=== PATIENT | female | born 1935 | race Caucasian/White ===

== ENCOUNTER 2018-11-26 12:56 | Day surgery (SDC) | payer MEDICARE ==
[~2018-11-26 12:56] MED LIST: Metoclopramide 10 MG/2 ML SDV IV PRN; Sodium Chloride 0.9% 1,000 ML IV SCH
[2018-11-26] MEDS ORDERED: Propofol 1,000 MG/100 ML SDV ONE (16:10)
--- NOTE | 2018-11-26 17:58 | OR ---
DATE OF OPERATION: 11/26/2018 PREOPERATIVE DIAGNOSIS: Abdominal pain. POSTOPERATIVE DIAGNOSIS: Abdominal pain. PROCEDURE: Colonoscopy. ANESTHESIA: MAC. ESTIMATED BLOOD LOSS: None. COMPLICATIONS: None. INDICATION FOR THE PROCEDURE: The patient is an 83-year-old female who for the past couple of months has had left-sided abdominal pain. Last colonoscopy was 5 to 6 years ago. Denies any change in bowel habits. Denies any blood in her stool. Does have chronic constipation. The patient is brought to the OR today for colonoscopy. DESCRIPTION OF PROCEDURE: Informed consent was obtained from the patient. The patient was taken to the operating room and placed on the table in the left lateral decubitus position. Monitored anesthesia care was administered. Digital rectal exam performed and was normal. Colonoscope was then advanced through the anus and directed toward the cecum. Sigmoid colon was tortuous, redundant, and floppy with many large and small diverticula. I was able to navigate through the sigmoid after repositioning the patient on her back. Cecum was eventually reached, identified by appendiceal orifice and ileocecal valve. The terminal ileum was intubated and also appeared to be normal. Colonoscope was then slowly withdrawn. No masses. No areas of ischemia or inflammation. 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 Otherwise, no polyps, no cancer. Diverticulosis, severe in the sigmoid, as previously stated. Air was suctioned out on the way out as well. Rectum was also otherwise unremarkable. FINDINGS: Sigmoid diverticulosis, otherwise normal colon. RECOMMENDATIONS: Recommend continued water and high-fiber diet for her diverticula. Otherwise, would not recommend any further colonoscopies due to age and difficulty with this one. HANY/MIRIAN /[id number]
[2018-11-26 18:47] VITALS: BP 143/88
== END 2018-11-26 18:05 | disposition home or self-care (01) ==
LOC: LB.SDS 12:56
PROVIDERS: ATTEND Surgery
DX: K57.30 Diverticulosis of large intestine without perforation or abscess without bleeding (principal); K59.09 Other constipation; Q43.8 Other specified congenital malformations of intestine; Q27.33 Arteriovenous malformation of digestive system vessel
CPT/HCPCS: G0121; J2704; J7030

== ENCOUNTER 2018-12-23 16:22 | Emergency (ER) | payer MEDICARE ==
[2018-12-23] MEDS ORDERED: Morphine 2 MG/ML Syringe ONE (17:33)
[2018-12-23] MEDS ORDERED: HYDROmorphone 2 MG/ML SDV IVPUSH ONE (17:39)
[2018-12-23] MEDS ORDERED: Morphine 2 MG/ML Syringe IVPUSH ONE (17:40)
[2018-12-23] MEDS ORDERED: Ondansetron 4 MG/2 ML SDV IVPUSH ONE (17:41)
[2018-12-23] MEDS ORDERED: HYDROmorphone 2 MG/ML SDV ONE (17:44)
[2018-12-23] MEDS ORDERED: Ondansetron 4 MG/2 ML SDV ONE (17:51)
== END 2018-12-23 18:00 ==
LOC: LB.ED 16:22
DX: S32.000A Wedge compression fracture of unspecified lumbar vertebra, initial encounter for closed fracture (principal); S32.10XA Unspecified fracture of sacrum, initial encounter for closed fracture; Z04.3 Encounter for examination and observation following other accident; Z88.0 Allergy status to penicillin; Z88.5 Allergy status to narcotic agent; Z79.82 Long term (current) use of aspirin; Z79.899 Other long term (current) drug therapy; W18.39XA Other fall on same level, initial encounter
CPT/HCPCS: 36415; 72131; 72192; 80048; 85025; 85610; 96374; 96375; 99284; A0425; A0429; J1170; J2270; J2405

== ENCOUNTER 2018-12-28 05:01 | Emergency (ER) | payer MEDICARE ==
[2018-12-28] MEDS ORDERED: Morphine 2 MG/ML Syringe IVPUSH ONE (05:11)
[2018-12-28] MEDS ORDERED: HYDROmorphone 2 MG/ML Syringe IVPUSH ONE (05:11)
[2018-12-28] MEDS ORDERED: Sodium Chloride 0.9% 1,000 ML IV SCH (06:15)
--- NOTE | 2018-12-28 07:18 | EDM.PDOC ---
ED HPI GENERAL MEDICAL PROBLEM - General Chief Complaint: General Stated Complaint: LEFT HIP PAIN Time Seen by Provider: 12/28/18 05:15 Source of Information: Reports: Patient, Family History Limitations: Reports: No Limitations - History of Present Illness INITIAL COMMENTS - FREE TEXT/NARRATIVE: Pt is 83 year old female, who recently was discharge from [facility] s/p Multiple thoracic ,lumbar and sacral fracture. Pt was placed on back brace and discharged on 12/25/18. Apparently today morning around 4:00 am, patient got out of her bed to use the bathroom fell and landed on her left hip. Since then she has not been able to walk, and has been c/o pain in her left groin with any movement. . No head injury, loss of consciousness. Does c/o pressure in the bladder. No fever or chills. No other complaints. Onset: Today Onset Date: 12/28/18 Onset Time: 04:00 Duration: Getting Worse Location: Reports: Pelvis Quality: Reports: Ache Severity: Severe Improves with: Reports: Rest Worsens with: Reports: Movement Associated Symptoms: Denies: Confusion, Chest Pain, Cough, Diaphoresis, Fever/ Chills, Nausea/Vomiting, Rash, Seizure, Shortness of Breath, Syncope, Weakness Left Hip Pain Score (Numeric/FACES): 9 - Related Data Allergies Allergy/AdvReac Type Severity Reaction Status Date / Time Penicillins Allergy Rash Verified 12/28/18 05:37 Sulfa (Sulfonamide Allergy Hives Verified 12/28/18 05:37 Antibiotics) codeine AdvReac Nausea Verified 12/28/18 05:37 morphine AdvReac Nausea Verified 12/28/18 05:37 Home Meds: Home Meds Atenolol 25 mg PO QAM 07/25/13 [History] Furosemide [Lasix] 20 mg PO QAM 07/25/13 [History] NIFEdipine [Nifedipine ER] 60 mg PO QAM 07/25/13 [History] Warfarin [Coumadin] 5 mg PO QPM 07/25/13 [History] Acetaminophen [Tylenol Extra Strength] 325 mg PO QID 10/10/16 [History] Ascorbic Acid [Vitamin C] 500 mg PO DAILY 10/10/16 [History] Aspirin 81 mg PO DAILY 10/10/16 [History] Calcium Carbonate/Vitamin D3 [Calcium 600 + Vit D Tablet] 1 tab PO DAILY [History] Cyanocobalamin (Vitamin B12) [Vitamin B12] 100 mcg PO DAILY 10/10/16 [History] Gluc 2KCl/Chondr/Hanna Hy/Hy Ac [Glucosamine & Chondroitin Cap] 1 tab PO DAILY [History] Multivitamin [Multivitamins] 1 tab PO DAILY 10/10/16 [History] Simvastatin [Zocor] 20 mg PO BEDTIME 10/10/16 [History] Vitamin E 400 units PO DAILY 10/10/16 [History] Hydrochlorothiazide/Lisinopril [Lisinopril-HCTZ 20-25 MG] 1 tab PO DAILY [History] B Complex & C No.20/Folic Acid [Mynephrocaps Softgel] 1 mg PO DAILY 12/28/18 [ History] Cholecalciferol (Vitamin D3) [Vitajoy Daily D] 1,000 unit PO DAILY 12/28/18 [ History] Cyclobenzaprine [Flexeril] 5 mg PO TID PRN 12/28/18 [History] Doxycycline Hyclate [Vibramycin] 100 mg PO BID 12/28/18 [History] Gabapentin [Neurontin] 100 mg PO TID 12/28/18 [History] Polyethylene Glycol 3350 [MiraLAX] 17 gm PO DAILY 12/28/18 [History] Past Medical History HEENT History: Reports: Impaired Vision Cardiovascular History: Reports: High Cholesterol, Hypertension Gastrointestinal History: Reports: Chronic Constipation, Other (See Below) Other Gastrointestinal History: occassional diarrhea 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 Psychiatric History: Reports: Anxiety - Past Surgical History Female Surgical History: Reports: Hysterectomy Musculoskeletal Surgical History: Reports: Shoulder Surgery Social & Family History - Family History Family Medical History: Noncontributory - Tobacco Use Smoking Status *Q: Unknown Ever Smoked Second Hand Smoke Exposure: No - Caffeine Use Caffeine Use: Reports: Coffee Other Caffeine Use: 2/day - Recreational Drug Use Recreational Drug Use: No ED ROS GENERAL - Review of Systems Review Of Systems: See Below Constitutional: Denies: Fever, Chills HEENT: Denies: Rhinitis, Throat Pain Respiratory: Denies: Shortness of Breath, Pleuritic Chest Pain, Cough, Sputum Cardiovascular: Denies: Chest Pain, Lightheadedness GI/Abdominal: Denies: Abdominal Pain, Nausea, Vomiting : Denies: Dysuria, Frequency Musculoskeletal: Reports: Back Pain, Joint Pain. Denies: Joint Swelling Skin: Denies: Bruising, Pruritis, Rash, Wound ED EXAM, GENERAL - Physical Exam Exam: See Below Exam Limited By: No Limitations General Appearance: Alert, WD/WN, Moderate Distress (from pain) Eye Exam: Bilateral Eye: EOMI, PERRL Ears: Normal External Exam, Normal Canal, Hearing Grossly Normal, Normal TMs Ear Exam: Bilateral Ear: Auricle Normal, Canal Normal, TM normal Nose: Normal Inspection, Normal Mucosa, No Blood Throat/Mouth: Normal Inspection, Normal Lips, Normal Teeth, Normal Gums, Normal Oropharynx, Normal Voice, No Airway Compromise Head: Atraumatic, Normocephalic Neck: Normal Inspection, Supple, Non-Tender, Full Range of Motion Respiratory/Chest: No Respiratory Distress, Lungs Clear, Normal Breath Sounds, No Accessory Muscle Use, Chest Non-Tender Cardiovascular: Normal Peripheral Pulses, Regular Rate, Rhythm, No Edema, No Gallop, No JVD, No Murmur, No Rub Back Exam: Other (Pt has back brace on , due to recent multiple thoraco lumbar vertebral fractures.) Extremities: Normal Inspection, Normal Range of Motion, Other (Pelvis: there is no swelling patient left hemipelvis appears shortened. She iver very tender on the groin to palpation. She does had minimal flexion of the hip. Tenderness in the left groin on lateral pressure) Neurological: Alert, Oriented, CN II-XII Intact, Normal Cognition Course - Vital Signs Text/Narrative:: On clinical exam patient does have left groin pain. She does have painful left hip ROM, it does not appear like hip fracture. As patient has had ostepenia with multiple vertebral fracture recently, I di order CT thoracolumbar spine and CT pelvis. Also CBC was ordered. Her vitals have been stable. She rate her pain at 8/10 . She did receive morphine 4mg IV, which only took edge of the pain. she did receive Dilaudid 1mg before getting her to CT scan. Pt's Ct does show fracture of the left superior and inferior pubic rami. With previous multiple thoracolumbar fracture and left S1 fracture. Pt's pain is down to 2/10 presently. Did have trouble with radiologist reading the CT due to high volume. Did have final CT read at 6:48 Am, which acute left superior and inferior pubic rami, also the bladder is partially collapsed and there is free retroperitoneal fluid. Does appear like urinary bladder injury. Urinary catheter was placed and there was casey blood in the catheter. I did contact Abdulkadir Carver and was recommended to transfer patient to trauma facility. As patient was recently admitted to [facility], I did contact Dr. Smith, trauma surgeon natural resources extension educator and discuss patient with her. She did agree to accept patient. Pt's CBC shows hemoglobin of 11.4 with HCT of 33. Her BMP shows sodium down at 128 and creat of 1.5.Her INR is 2.1 Pt has been placed on NS at 75cc/hr also is kept NPO. She pain is down to 2/10 and appears comfortable. Duet to extend of injury and distance of the facility, I have made decision to have patient transferred by air. Pt will be transferred to [facility] Under Care of Dr. Smith. Further care per Dr. Smith. Last Recorded V/S: Last Vital Signs Temp 97.7 F 12/28/18 05:05 Pulse 63 12/28/18 06:04 Resp 16 12/28/18 06:04 BP 97/47 L 12/28/18 06:04 Pulse Ox 93 L 12/28/18 05:50 - Orders/Labs/Meds Orders: Active Orders 24 hr Category Date Time Status Insert Shah Catheter [Insert Urinary Catheter] [OM.PC] Care 12/28/18 06:15 Ordered Q24H Urinary Catheter Assessment [RC] ASDIRECTED Care 12/28/18 06:15 Active Abdomen Pelvis wo Cont [CT] Stat Exams 12/28/18 05:09 Taken Lumbar Spine wo Cont [CT] Stat Exams 12/28/18 05:09 Taken Thoracic Spine wo Cont [CT] Stat Exams 12/28/18 05:09 Taken BASIC METABOLIC PANEL,BMP [CHEM] Stat Lab 12/28/18 07:10 Ordered INR,PT,PROTHROMBIN TIME [COAG] Stat Lab 12/28/18 07:10 Ordered Sodium Chloride 0.9% [Normal Saline] 1,000 ml Med 12/28/18 06:15 Active IV ASDIRECTED Medication Orders Sodium Chloride (Normal Saline) 1,000 mls @ 75 mls/hr IV ASDIRECTED BRADEN Last Admin: 12/28/18 06:25 Dose: 75 mls/hr Labs: Laboratory Tests 12/28/18 Range/Units 05:20 WBC 6.2 (4.0-11.0) K/uL RBC 3.79 L (3.80-5.80) M/uL Hgb 11.4 L (11.5-16.5) g/dL Hct 33.2 L (37.0-47.0) % MCV 88 (76-96) fL MCH 30.1 (27.0-32.0) pg MCHC 34.3 (31.0-35.0) g/dL RDW 13.4 (11.0-16.0) % Plt Count 268 (150-500) K/uL MPV 8.5 (6.0-10.0) fL Neut % (Auto) 69.1 (45.0-70.0) % Lymph % (Auto) 15.7 L (20.0-40.0) % [place] % (Auto) 8.3 (3.0-10.0) % Eos % (Auto) 6.4 H (1.0-5.0) % Baso % (Auto) 0.5 (0.0-0.5) % Neut # (Auto) 4.30 (2.00-7.50) K/uL Lymph # (Auto) 0.98 L (1.50-4.00) K/uL [place] # (Auto) 0.52 (0.20-0.80) K/uL Eos # (Auto) 0.40 (0.04-0.40) K/uL Baso # (Auto) 0.03 (0.02-0.10) K/uL Meds: Medications Generic Name Dose Route Start Last Admin Trade Name Freq PRN Reason Stop Dose Admin Sodium Chloride 1,000 mls @ 75 mls/hr 12/28/18 06:15 12/28/18 06:25 Normal Saline IV 75 mls/hr ASDIRECTED BRADEN Administration Discontinued Medications Generic Name Dose Route Start Last Admin Trade Name Freq PRN Reason Stop Dose Admin Hydromorphone HCl 1 mg 12/28/18 05:11 12/28/18 05:45 Dilaudid IVPUSH 12/28/18 05:12 1 mg ONETIME ONE Administration Morphine Sulfate 4 mg 12/28/18 05:11 12/28/18 05:22 Morphine IVPUSH 12/28/18 05:12 4 mg ONETIME ONE Administration Departure - Departure Time of Disposition: 08:30 Disposition: DC/Tfer to Acute Hospital 02 Condition: Fair Clinical Impression: Pelvic fracture, Bladder and urethra injury - Discharge Information *PRESCRIPTION DRUG MONITORING PROGRAM REVIEWED*: Not Applicable *COPY OF PRESCRIPTION DRUG MONITORING REPORT IN PATIENT JACQUELINE: Not Applicable Referrals: PCP,None [Primary Care Provider] - - Problem List & Annotations (1) Bladder and urethra injury SNOMED Code(s): 370767465 Code(s): S37.20XA - UNSPECIFIED INJURY OF BLADDER, INITIAL ENCOUNTER; S37.30XA - UNSPECIFIED INJURY OF URETHRA, INITIAL ENCOUNTER Status: Acute Current Visit: Yes (2) Pelvic fracture SNOMED Code(s): 35838494 Code(s): S32.9XXA - FRACTURE OF UNSP PARTS OF LUMBOSACRAL SPINE AND PELVIS, INIT Status: Acute Current Visit: Yes - Problem List Review Problem List Initiated/Reviewed/Updated: Yes - My Orders Last 24 Hours: My Active Orders 12/28/18 05:09 Abdomen Pelvis wo Cont [CT] Stat Lumbar Spine wo Cont [CT] Stat Thoracic Spine wo Cont [CT] Stat 12/28/18 06:15 Insert Shah Catheter [Insert Urinary Catheter] [OM.PC] Q24H Urinary Catheter Assessment [RC] ASDIRECTED Sodium Chloride 0.9% [Normal Saline] 1,000 ml IV ASDIRECTED 12/28/18 07:10 BASIC METABOLIC PANEL,BMP [CHEM] Stat INR,PT,PROTHROMBIN TIME [COAG] Stat - Assessment/Plan Last 24 Hours: My Active Orders 12/28/18 05:09 Abdomen Pelvis wo Cont [CT] Stat Lumbar Spine wo Cont [CT] Stat Thoracic Spine wo Cont [CT] Stat 12/28/18 06:15 Insert Shah Catheter [Insert Urinary Catheter] [OM.PC] Q24H Urinary Catheter Assessment [RC] ASDIRECTED Sodium Chloride 0.9% [Normal Saline] 1,000 ml IV ASDIRECTED 12/28/18 07:10 BASIC METABOLIC PANEL,BMP [CHEM] Stat INR,PT,PROTHROMBIN TIME [COAG] Stat Assessment:: On clinical exam patient does have left groin pain. She does have painful left hip ROM, it does not appear like hip fracture. As patient has had ostepenia with multiple vertebral fracture recently, I di order CT thoracolumbar spine and CT pelvis. Also CBC was ordered. Her vitals have been stable. She rate her pain at 8/10 . She did receive morphine 4mg IV, which only took edge of the pain. she did receive Dilaudid 1mg before getting her to CT scan. Pt's Ct does show fracture of the left superior and inferior pubic rami. With previous multiple thoracolumbar fracture and left S1 fracture. Pt's pain is down to 2/10 presently. Did have trouble with radiologist reading the CT due to high volume. Did have final CT read at 6:48 Am, which acute left superior and inferior pubic rami, also the bladder is partially collapsed and there is free retroperitoneal fluid. Does appear like urinary bladder injury. Urinary catheter was placed and there was casey blood in the catheter. I did contact Abdulkadir Carver and was recommended to transfer patient to trauma facility. As patient was recently admitted to [facility], I did contact Dr. Smith, trauma surgeon natural resources extension educator and discuss patient with her. She did agree to accept patient. Pt's CBC shows hemoglobin of 11.4 with HCT of 33. Her BMP shows sodium down at 128 and creat of 1.5.Her INR is 2.1 Pt has been placed on NS at 75cc/hr also is kept NPO. She pain is down to 2/10 and appears comfortable. Duet to extend of injury and distance of the facility, I have made decision to have patient transferred by air. Pt will be transferred to [facility] Under Care of Dr. Smith. Further care per Dr. Smith.
[2018-12-28 08:00] VITALS: BP 110/69; PULSE 86
--- NOTE | 2018-12-28 09:11 | CT ---
DATE OF SERVICE: 12/28/18 CLINICAL DATA: Fall. THORACIC SPINE CT: Multislice axial acquisition was performed. Axial images and sagittal and coronal reformations are reviewed. Comparison is made to a prior lumbar spine CT dated 12/23/18. There is a partial compression fracture of the T6 vertebra with approximately 70 %-80% loss of height anteriorly. The age of this is indeterminate. The posterior cortex of T6 is slightly retropulsed producing slight narrowing of the spinal canal in the AP dimension. There are compression fractures involving the T9, T10 and T12 vertebral bodies. There is approximately 20%-30% loss of height anteriorly at the T7 level and approximately 30%-40% loss of height at the T11 level. There is approximately 70%-80% loss of height at the T12 level. These were present on the prior CT and are unchanged. No other compression fractures. There is degenerative disk disease throughout the thoracic spine. There is facet joint hypertrophy at multiple levels. No significant central or foraminal stenosis. There are atherosclerotic changes at the thoracic aorta. [id number] [facility]
--- NOTE | 2018-12-28 09:17 | CT ---
DATE OF SERVICE: 12/28/18 CLINICAL DATA: Fall. LUMBAR SPINE CT: Routine CT protocol. Axial images and sagittal and coronal reformations are reviewed. Comparison is made to a prior lumbar spine CT dated 12/23/18. There is diffuse osteopenia. There are partial compression fractures of the T12, L1, L2, L3, and L5 vertebral bodies. They appear unchanged from the prior exam. There are fractures through the transverse processes of L4 and L5 bilaterally. These were not present on the prior study. There is angular deformity of the sacrum at the S1-S2 level. This appears unchanged from the prior exam and is probably related to prior trauma. There are lucencies through the sacral ala bilaterally consistent with fractures. These are not clearly seen on the prior study. The remainder of the exam is unchanged from the previous. [id number] [facility]
--- NOTE | 2018-12-28 09:23 | CT ---
DATE OF SERVICE: 12/28/18 CLINICAL DATA: Fall. UNENHANCED ABDOMEN AND PELVIC CT: Multislice axial acquisition through the abdomen and pelvis without IV or oral contrast was performed. Comparison is made to a prior abdomen and pelvic CT dated 10/22/18. There are chronic atelectatic/fibrotic changes in both lung bases. There are coronary artery calcifications. The unenhanced liver appears normal. The patient is status post cholecystectomy. The spleen appears normal. The pancreas appears normal. The right and left adrenals appear normal. There is atrophy of both kidneys. No nephrocalcinosis or nephrolithiasis. No hydronephrosis or hydroureter. The bladder is partially fluid filled. There is diffuse bladder wall thickening. This is probably related to non distention. Cystitis should be considered. No free air. No dilated loops of bowel. No adenopathy. No aortic aneurysm. There are acute minimally displaced fractures of the superior and inferior pubic rami on the left. There is adjacent fluid and there is free fluid noted within the pelvis. This is probably hematoma. There is mild displacement of the bladder. Multiple other fractures noted in the lumbar spine and sacrum. See lumbar spine CT report. No other interval changes from the prior study. [id number] [facility]
== END 2018-12-28 08:35 ==
LOC: LB.ED 05:01
DX: S32.592A Other specified fracture of left pubis, initial encounter for closed fracture (principal); S32.049A Unspecified fracture of fourth lumbar vertebra, initial encounter for closed fracture; S32.059A Unspecified fracture of fifth lumbar vertebra, initial encounter for closed fracture; S37.20XA Unspecified injury of bladder, initial encounter; S37.30XA Unspecified injury of urethra, initial encounter; I10 Essential (primary) hypertension; Z88.0 Allergy status to penicillin; Z88.2 Allergy status to sulfonamides; Z88.5 Allergy status to narcotic agent; Z79.01 Long term (current) use of anticoagulants; Z79.82 Long term (current) use of aspirin; Z79.899 Other long term (current) drug therapy; Z90.710 Acquired absence of both cervix and uterus; W01.0XXA Fall on same level from slipping, tripping and stumbling without subsequent striking against object, initial encounter
CPT/HCPCS: 36415; 51702; 72128; 72131; 74176; 80048; 85025; 85610; 96361; 96374; 96375; 99285; A0425; A0429; J1170; J2270; J7030

== ENCOUNTER 2021-05-21 11:33 | Emergency (ER) | payer MEDICARE ==
[2021-05-21] MEDS: Sodium Chloride 0.9% 1,000 ML IV ONE (13:12)
[2021-05-21] MEDS: Bamlanivimab 700 MG, ETESEVIMAB 1,400 MG in Sodium Chloride 0.9% 100 ML IV SCH (15:05)
--- NOTE | 2021-05-21 15:49 | CT ---
DATE OF SERVICE: 05/21/2021 CLINICAL DATA: Abdominal pain Unenhanced abdomen and pelvic CT: Multi slice acquisition through the abdomen and pelvis without IV or oral contrast was performed. Comparison is made to a prior unenhanced abdomen and pelvic CT dated 28 December 2018. There are linear densities in both lung bases consistent with linear atelectasis or fibrosis. No pleural effusion. The heart size is normal. The unenhanced liver appears normal. No focal hepatic lesions. The patient is status post cholecystectomy. No biliary duct dilatation. The spleen appears normal. The pancreas is mildly atrophic, otherwise normal. The right and left adrenals appear normal. There is atrophy of both kidneys. No nephrocalcinosis or nephrolithiasis. No hydronephrosis or hydroureter. The bladder is partially fluid filled. It appears normal. The patient is status post hysterectomy. There is mild gastric wall thickening. This is probably related to nondistention. There is a duodenal diverticulum projecting from the descending portion of duodenum. No evidence of appendicitis. There are scattered air-fluid levels throughout the colon. There are few scattered air-fluid levels noted within the small bowel. No dilated loops of bowel. Enterocolitis should be considered. Followup imaging is recommended if clinically indicated. No free air. No free fluid. No dilated loops of bowel. No adenopathy. No aortic aneurysm. There is a small fat containing ventral hernia. There is degenerative disc disease throughout the lower thoracic and lumbar spine. There there are partial compression fractures of T12 and L5, unchanged from the prior study. There is also stable mild compression deformity of L1 and L2. There are old fractures of the left superior and inferior pubic rami. No other significant findings. [facility]
[2021-05-21 15:56] VITALS: BP 166/94; PULSE 61
--- NOTE | 2021-05-21 16:20 | EDM.PDOC ---
ED HPI GENERAL MEDICAL PROBLEM - General Chief Complaint: Abdominal Pain Stated Complaint: WEAKNESS Time Seen by Provider: 05/21/21 11:50 - History of Present Illness INITIAL COMMENTS - FREE TEXT/NARRATIVE: Pt is here with C/O not feeling well for 2 months. She has Abd discomfort at times with diarrhea. Yesterday she felt worse. Today she feels a little better. She had 4 teeth removed in late Feb and that seemed to start it. She has lost most of her appetite, eating yogurt and other soft foods. She tells me she has lost 20 lbs since this started. She is not coughing or having and SOB. No rectal bleeding. Bilateral Abdominal Pain Score (Numeric/FACES): 6 - Related Data Allergies Allergy/AdvReac Type Severity Reaction Status Date / Time Penicillins Allergy Rash Verified 05/21/21 12:27 Sulfa (Sulfonamide Allergy Hives Verified 05/21/21 12:27 Antibiotics) codeine AdvReac Nausea Verified 05/21/21 12:27 morphine AdvReac Nausea Verified 05/21/21 12:27 Home Meds: Home Meds Furosemide [Lasix] 20 mg PO QAM 07/25/13 [History] NIFEdipine [Nifedipine ER] 60 mg PO QAM 07/25/13 [History] Warfarin [Coumadin] 2.5 mg PO QPM 07/25/13 [History] atenoloL [Atenolol] 25 mg PO QAM 07/25/13 [History] Acetaminophen [Tylenol Extra Strength] 325 mg PO QID 10/10/16 [History] Ascorbic Acid [Vitamin C] 500 mg PO DAILY 10/10/16 [History] Aspirin 81 mg PO DAILY 10/10/16 [History] Calcium Carbonate/Vitamin D3 [Calcium 600 + Vit D Tablet] 1 tab PO DAILY 10/10/16 [History] Cyanocobalamin (Vitamin B12) [Vitamin B12] 100 mcg PO DAILY 10/10/16 [History] Glucosam/Chondr/Collagn/Hyalur [Glucosamine & Chondroitin Cap] 1 tab PO DAILY 10/10/16 [History] Multivitamin [Multivitamins] 1 tab PO DAILY 10/10/16 [History] Simvastatin [Zocor] 20 mg PO BEDTIME 10/10/16 [History] Vitamin E 400 units PO DAILY 10/10/16 [History] Hydrochlorothiazide/Lisinopril [Lisinopril-HCTZ 20-25 MG] 1 tab PO DAILY 10/18/16 [History] B Complex & C No.20/Folic Acid [Mynephrocaps Softgel] 1 mg PO DAILY 12/28/18 [History] Cholecalciferol (Vitamin D3) [Vitajoy Daily D] 1,000 unit PO DAILY 12/28/18 [History] Doxycycline Hyclate [Vibramycin] 100 mg PO BID 12/28/18 [History] polyethylene glycoL 3350 [MiraLAX] 17 gm PO DAILY 12/28/18 [History] Past Medical History HEENT History: Reports: Impaired Vision Cardiovascular History: Reports: High Cholesterol, Hypertension Gastrointestinal History: Reports: Chronic Constipation, Other (See Below) Other Gastrointestinal History: occassional diarrhea [employer] History: Reports: Musculoskeletal History: Reports: Back Pain, Chronic, Other (See Below) Other Musculoskeletal History: Recently transferred with numerous vertebral compression Fx. Psychiatric History: Reports: Anxiety - Past Surgical History Female Surgical History: Reports: Hysterectomy Musculoskeletal Surgical History: Reports: Shoulder Surgery Other Musculoskeletal Surgeries/Procedures:: Rotator cuff x2 right and x1 left. Social & Family History - Family History Family Medical History: No Pertinent Family History - Caffeine Use Caffeine Use: Reports: Coffee Other Caffeine Use: 2/day - Recreational Drug Use Recreational Drug Use: No ED ROS GENERAL - Review of Systems Review Of Systems: Comprehensive ROS is negative, except as noted in HPI. Constitutional: Reports: Weakness GI/Abdominal: Reports: Abdominal Pain, Diarrhea ED EXAM, GENERAL - Physical Exam Exam: See Below GI/Abdominal: Other (She has tenderness with light touch on the left side of the Abd. No gaurding. B.S are present.) Course - Vital Signs Last Recorded V/S: Last Vital Signs Temp 97.4 F 05/21/21 15:55 Pulse 61 05/21/21 15:55 Resp 18 05/21/21 15:55 BP 166/94 H 05/21/21 15:55 Pulse Ox 100 05/21/21 15:55 - Orders/Labs/Meds Orders: Active Orders 24 hr Category Date Time Status CORONAVIRUS COVID-19 RAPID [MOLEC] Stat Lab 05/21/21 12:49 Ordered STOOL CULTURE Stat Lab 05/21/21 12:46 Ordered Bamlanivimab 700 mg Med 05/21/21 14:45 Active Etesevimab [Etesevimab (EUA)] 1,400 mg Sodium Chloride 0.9% [Normal Saline] 100 ml IV ASDIRECTED Sodium Chloride 0.9% [Normal Saline] 1,000 ml Med 05/21/21 12:47 Active IV .BOLUS Medication Orders Sodium Chloride (Normal Saline) 1,000 mls @ 250 mls/hr IV .BOLUS ONE Stop: 05/21/21 16:46 Last Admin: 05/21/21 13:12 Dose: 250 mls/hr Documented by: TYLOR Bamlanivimab 700 mg/Etesevimab 1,400 mg/ Sodium Chloride 160 mls @ 160 mls/hr IV ASDIRECTED BRADEN Stop: 05/21/21 23:59 Last Admin: 05/21/21 15:05 Dose: 160 mls/hr Documented by: TYLOR Labs: Laboratory Tests 05/21/21 05/21/21 05/21/21 Range/Units 12:43 12:53 13:08 WBC 3.5 L D (4.0-11.0) K/uL RBC 4.70 (3.80-5.80) M/uL Hgb 13.6 (11.5-16.5) g/dL Hct 40.1 (37.0-47.0) % MCV 85 (76-96) fL MCH 28.9 (27.0-32.0) pg MCHC 33.9 (31.0-35.0) g/dL RDW 15.1 (11.0-16.0) % Plt Count 125 L (150-500) K/uL MPV 9.8 (6.0-10.0) fL Neut % (Auto) 64.6 (45.0-70.0) % Lymph % (Auto) 19.3 L (20.0-40.0) % [place] % (Auto) 12.9 H (3.0-10.0) % Eos % (Auto) 2.9 (1.0-5.0) % Baso % (Auto) 0.3 (0.0-0.5) % Neut # (Auto) 2.25 (2.00-7.50) K/uL Lymph # (Auto) 0.67 L (1.50-4.00) K/uL [place] # (Auto) 0.45 (0.20-0.80) K/uL Eos # (Auto) 0.10 (0.04-0.40) K/uL Baso # (Auto) 0.01 L (0.02-0.10) K/uL PT (9.0-11.5) sec INR (1.0-3.5) Sodium (136-145) mmol/L Potassium (3.5-5.1) mmol/L Chloride (98-107) mmol/L Carbon Dioxide (21.0-32.0) mmol/L Anion Gap (5.0-15.0) mmol/L BUN (8-26) mg/dL Creatinine (0.55-1.02) mg/dL Est Cr Clr Drug Dosing Estimated GFR (MDRD) (>60) MLS/MIN BUN/Creatinine Ratio (6-25) Glucose (74-100) mg/dL Lactic Acid (0.4-2.0) mmol/L Calcium (8.5-10.1) mg/dL Total Bilirubin (0.0-1.0) mg/dL AST (15-37) U/L ALT (12-78) U/L Alkaline Phosphatase (46-116) U/L Total Protein (6.4-8.2) g/dL Albumin (3.4-5.0) g/dL Globulin (2.2-4.2) g/dL Albumin/Globulin Ratio (0.8-2.0) Lipase (73-393) U/L Urine Color Yellow Urine Appearance Clear (CLEAR) Urine pH 7.5 (5.0-8.0) Ur Specific [place] 1.020 (1.003-1.030) Urine Protein Negative (NEGATIVE) mg/dL Urine Glucose (UA) Negative (NEGATIVE) mg/dL Urine Ketones Negative (NEGATIVE) mg/dL Urine Occult Blood Negative (NEGATIVE) Urine Nitrite Negative (NEGATIVE) Urine Bilirubin Negative (NEGATIVE) Urine Urobilinogen 0.2 (0.2-1.0) E.U./dL Ur Leukocyte Esterase Negative (NEGATIVE) Urine RBC 0-5 H /HPF Urine WBC 0-5 H /HPF Ur Squamous Epith Cells Occasional /HPF SARS-CoV-2 RNA (TIFFANY) Positive H (NEGATIVE) 05/21/21 05/21/21 05/21/21 Range/Units 13:08 13:08 13:08 WBC (4.0-11.0) K/uL RBC (3.80-5.80) M/uL Hgb (11.5-16.5) g/dL Hct (37.0-47.0) % MCV (76-96) fL MCH (27.0-32.0) pg MCHC (31.0-35.0) g/dL RDW (11.0-16.0) % Plt Count (150-500) K/uL MPV (6.0-10.0) fL Neut % (Auto) (45.0-70.0) % Lymph % (Auto) (20.0-40.0) % [place] % (Auto) (3.0-10.0) % Eos % (Auto) (1.0-5.0) % Baso % (Auto) (0.0-0.5) % Neut # (Auto) (2.00-7.50) K/uL Lymph # (Auto) (1.50-4.00) K/uL [place] # (Auto) (0.20-0.80) K/uL Eos # (Auto) (0.04-0.40) K/uL Baso # (Auto) (0.02-0.10) K/uL PT 18.0 H (9.0-11.5) sec INR 1.9 (1.0-3.5) Sodium 135 L (136-145) mmol/L Potassium 3.4 L (3.5-5.1) mmol/L Chloride 92 L (98-107) mmol/L Carbon Dioxide 29.3 (21.0-32.0) mmol/L Anion Gap 17.1 H (5.0-15.0) mmol/L BUN 15 D (8-26) mg/dL Creatinine 0.94 (0.55-1.02) mg/dL Est Cr Clr Drug Dosing TNP Estimated GFR (MDRD) 56 L (>60) MLS/MIN BUN/Creatinine Ratio 16.0 (6-25) Glucose 96 (74-100) mg/dL Lactic Acid 2.5 H (0.4-2.0) mmol/L Calcium 9.2 (8.5-10.1) mg/dL Total Bilirubin 0.5 (0.0-1.0) mg/dL AST 40 H (15-37) U/L ALT 29 (12-78) U/L Alkaline Phosphatase 69 (46-116) U/L Total Protein 7.1 (6.4-8.2) g/dL Albumin 3.6 (3.4-5.0) g/dL Globulin 3.5 (2.2-4.2) g/dL Albumin/Globulin Ratio 1.0 (0.8-2.0) Lipase (73-393) U/L Urine Color Urine Appearance (CLEAR) Urine pH (5.0-8.0) Ur Specific [place] (1.003-1.030) Urine Protein (NEGATIVE) mg/dL Urine Glucose (UA) (NEGATIVE) mg/dL Urine Ketones (NEGATIVE) mg/dL Urine Occult Blood (NEGATIVE) Urine Nitrite (NEGATIVE) Urine Bilirubin (NEGATIVE) Urine Urobilinogen (0.2-1.0) E.U./dL Ur Leukocyte Esterase (NEGATIVE) Urine RBC /HPF Urine WBC /HPF Ur Squamous Epith Cells /HPF SARS-CoV-2 RNA (TIFFANY) (NEGATIVE) 05/21/21 Range/Units 13:08 WBC (4.0-11.0) K/uL RBC (3.80-5.80) M/uL Hgb (11.5-16.5) g/dL Hct (37.0-47.0) % MCV (76-96) fL MCH (27.0-32.0) pg MCHC (31.0-35.0) g/dL RDW (11.0-16.0) % Plt Count (150-500) K/uL MPV (6.0-10.0) fL Neut % (Auto) (45.0-70.0) % Lymph % (Auto) (20.0-40.0) % [place] % (Auto) (3.0-10.0) % Eos % (Auto) (1.0-5.0) % Baso % (Auto) (0.0-0.5) % Neut # (Auto) (2.00-7.50) K/uL Lymph # (Auto) (1.50-4.00) K/uL [place] # (Auto) (0.20-0.80) K/uL Eos # (Auto) (0.04-0.40) K/uL Baso # (Auto) (0.02-0.10) K/uL PT (9.0-11.5) sec INR (1.0-3.5) Sodium (136-145) mmol/L Potassium (3.5-5.1) mmol/L Chloride (98-107) mmol/L Carbon Dioxide (21.0-32.0) mmol/L Anion Gap (5.0-15.0) mmol/L BUN (8-26) mg/dL Creatinine (0.55-1.02) mg/dL Est Cr Clr Drug Dosing Estimated GFR (MDRD) (>60) MLS/MIN BUN/Creatinine Ratio (6-25) Glucose (74-100) mg/dL Lactic Acid (0.4-2.0) mmol/L Calcium (8.5-10.1) mg/dL Total Bilirubin (0.0-1.0) mg/dL AST (15-37) U/L ALT (12-78) U/L Alkaline Phosphatase (46-116) U/L Total Protein (6.4-8.2) g/dL Albumin (3.4-5.0) g/dL Globulin (2.2-4.2) g/dL Albumin/Globulin Ratio (0.8-2.0) Lipase 68 L (73-393) U/L Urine Color Urine Appearance (CLEAR) Urine pH (5.0-8.0) Ur Specific [place] (1.003-1.030) Urine Protein (NEGATIVE) mg/dL Urine Glucose (UA) (NEGATIVE) mg/dL Urine Ketones (NEGATIVE) mg/dL Urine Occult Blood (NEGATIVE) Urine Nitrite (NEGATIVE) Urine Bilirubin (NEGATIVE) Urine Urobilinogen (0.2-1.0) E.U./dL Ur Leukocyte Esterase (NEGATIVE) Urine RBC /HPF Urine WBC /HPF Ur Squamous Epith Cells /HPF SARS-CoV-2 RNA (TIFFANY) (NEGATIVE) Meds: Medications Generic Name Dose Route Start Last Admin Trade Name Freq PRN Reason Stop Dose Admin Sodium Chloride 1,000 mls @ 250 mls/hr 05/21/21 12:47 05/21/21 13:12 Normal Saline IV 05/21/21 16:46 250 mls/hr .BOLUS ONE Administration Bamlanivimab 700 mg/ 160 mls @ 160 mls/hr 05/21/21 14:45 05/21/21 15:05 Etesevimab 1,400 mg/ Sodium IV 05/21/21 23:59 160 mls/hr Chloride ASDIRECTED BRADEN Administration - Re-Assessments/Exams Free Text/Narrative Re-Assessment/Exam: 05/21/21 16:20 Labs show her WBC os low at 3.5 - she is on Doxycycline 100 mg bid, and has been for years. Lactic acid is slightly up at 2.5. She tells me this is due to infection issues she had after Rt shoulder replacement. Covid is Positive. CT Abd and pelvis show scattered air fluid levels, suggesting enterocolitis. I had a conversation with her about going home versus staying here. Her vitals are very good, and after getting a liter of N.S. she was able to go to the BR without assistance. She wants to go home, and I feel this is reasonable. She was given BAM IV per protocol. She is to go home and monitor her condition closely. Eat small amounts freq. Consider Ensure or similar drinks to aid with nutrition. Follow up with her PCP or here as needed with any questions or concerns. Departure - Departure Time of Disposition: 16:30 Disposition: Home, Self-Care 01 Condition: Good Clinical Impression: COVID-19 determined by clinical diagnostic criteria - Discharge Information *PRESCRIPTION DRUG MONITORING PROGRAM REVIEWED*: Yes *COPY OF PRESCRIPTION DRUG MONITORING REPORT IN PATIENT JACQUELINE: Yes Instructions: COVID-19, Bamlanivimab Solution for Injection Referrals: PCP,None [Primary Care Provider] - Forms: ED Department Discharge Sepsis Event Note (ED) - Evaluation Sepsis Screening Result: No Definite Risk - Focused Exam Vital Signs: Vital Signs Temp Pulse Resp BP Pulse Ox 05/21/21 15:55 97.4 F 61 18 166/94 H 100 05/21/21 14:52 98.3 F 74 18 162/84 H 98 05/21/21 12:27 98.2 F 80 18 157/84 H 98 - My Orders Last 24 Hours: My Active Orders 05/21/21 12:46 STOOL CULTURE Stat 05/21/21 12:47 Sodium Chloride 0.9% [Normal Saline] 1,000 ml IV .BOLUS 05/21/21 12:49 CORONAVIRUS COVID-19 RAPID [MOLEC] Stat 05/21/21 14:45 Bamlanivimab 700 mg Etesevimab [Etesevimab (EUA)] 1,400 mg Sodium Chloride 0.9% [Normal Saline] 100 ml IV ASDIRECTED - Assessment/Plan Last 24 Hours: My Active Orders 05/21/21 12:46 STOOL CULTURE Stat 05/21/21 12:47 Sodium Chloride 0.9% [Normal Saline] 1,000 ml IV .BOLUS 05/21/21 12:49 CORONAVIRUS COVID-19 RAPID [MOLEC] Stat 05/21/21 14:45 Bamlanivimab 700 mg Etesevimab [Etesevimab (EUA)] 1,400 mg Sodium Chloride 0.9% [Normal Saline] 100 ml IV ASDIRECTED
== END 2021-05-21 16:27 | disposition home or self-care (01) ==
LOC: LB.ED 11:33
DX: U07.1 COVID-19 (principal); R19.7 Diarrhea, unspecified; E78.00 Pure hypercholesterolemia, unspecified; I10 Essential (primary) hypertension; Z88.0 Allergy status to penicillin; Z88.2 Allergy status to sulfonamides; Z88.5 Allergy status to narcotic agent; Z79.01 Long term (current) use of anticoagulants; Z79.82 Long term (current) use of aspirin; Z79.899 Other long term (current) drug therapy
CPT/HCPCS: 36415; 74176; 80053; 81001; 83605; 83690; 85025; 85610; 99284; J7030; M0245; Q0245; U0002

== ENCOUNTER 2022-11-24 09:09 | Emergency (ER) | payer MEDICARE ==
[2022-11-24] MEDS ORDERED: HYDROmorphone 2 MG/ML Syringe IVPUSH ONE (09:17)
[2022-11-24] MEDS ORDERED: Nitroglycerin 0.4 MG Tab.SL SL ONE (09:17)
[2022-11-24 09:24] LABS: BASOPHILS ABSOLUTE AUTO 0.02 K/uL (0.02-0.10); BASOPHILS PERCENT AUTO 0.2 % (0.0-0.5); EOSINOPHILS ABSOLUTE AUTO 0.08 K/uL (0.04-0.40); EOSINOPHILS PERCENT AUTO 0.7 % (1.0-5.0); LYMPHOCYTES ABSOLUTE AUTO 1.07 K/uL (1.50-4.00); LYMPHOCYTES PERCENT AUTO 9.8 % (20.0-40.0); MEAN CORPUSCULAR HEMOGLOBIN 30.7 pg (27.0-32.0); MEAN CORPUSCULAR HGB CONC 34.2 g/dL (31.0-35.0); MEAN CORPUSCULAR VOLUME 90 fL (76-96); MEAN PLATELET VOLUME 8.5 fL (6.0-10.0); MONOCYTES ABSOLUTE AUTO 0.96 K/uL (0.20-0.80); MONOCYTES PERCENT AUTO 8.8 % (3.0-10.0); NEUTROPHILS ABSOLUTE AUTO 8.77 K/uL (2.00-7.50); NEUTROPHILS PERCENT AUTO 80.5 % (45.0-70.0); PLATELET COUNT,PLT 184 K/uL (150-500); RED BLOOD CELL COUNT 4.24 M/uL (3.80-5.80); RED CELL DISTRIBUTION WIDTH 15.3 % (11.0-16.0); WHITE BLOOD CELL COUNT,WBC 10.9 K/uL (4.0-11.0)
[2022-11-24 09:45] LABS: A/G RATIO 1.3 (0.8-2.0); ALBUMIN 3.7 g/dL (3.4-5.0); ANION GAP 7.1 mmol/L (5.0-15.0); BUN/CREATININE RATIO 28.8 (6-25); CALCIUM 8.7 mg/dL (8.5-10.1); CARBON DIOXIDE,CO2 34.5 mmol/L (21.0-32.0); CREATININE 0.8 mg/dL (0.55-1.02); EST CRCL DRUG DOSING (CG) 36.55 mL/min; INR 3.1 (1.0-3.5); POTASSIUM,K 3.6 mmol/L (3.5-5.1); PROTEIN TOTAL,TP 6.6 g/dL (6.4-8.2); PROTHROMBIN TIME 30.9 sec (9.0-11.5)
[2022-11-24 09:47] LABS: MAGNESIUM 1.9 mg/dL (1.8-2.4); TROPONIN I HIGH SENSITIVITY 11.8 pg/ml (<=60.4)
[2022-11-24] MEDS ORDERED: Sodium Chloride 0.9% 1,000 ML IV ONE (09:52)
[2022-11-24] MEDS ORDERED: Acetaminophen 325 MG Tab PO ONE (13:12)
[2022-11-24] MEDS ORDERED: Acetaminophen 325 MG Tab ONE (13:13)
[2022-11-24] MEDS ORDERED: predniSONE 10 MG Tab ONE (14:00)
[2022-11-24] MEDS ORDERED: Sodium Chloride 0.9% 10 ML Syringe FLUSH PRN (15:35)
[2022-11-24 15:51] VITALS: BP 192/93; PULSE 62
== END 2022-11-24 14:12 | disposition home or self-care (01) ==
LOC: LB.ED 09:09
DX: R07.89 Other chest pain (principal); E78.00 Pure hypercholesterolemia, unspecified; I10 Essential (primary) hypertension; Z88.0 Allergy status to penicillin; Z88.2 Allergy status to sulfonamides; Z88.5 Allergy status to narcotic agent; Z79.01 Long term (current) use of anticoagulants; Z79.82 Long term (current) use of aspirin; Z79.899 Other long term (current) drug therapy
CPT/HCPCS: 36415; 71045; 80053; 83735; 84484; 85025; 85610; 85730; 93005; 96361; 96374; 99285; A9270; J1170; J7030; J7512; A0425; A0429